=== PATIENT | female | born 1985 | race Caucasian/White ===

== ENCOUNTER 2017-02-21 18:41 | Emergency (ER) | payer OTHER ==
[~2017-02-21] VITALS: Ht 172.7 cm; Wt 63.5 kg
--- NOTE | 2017-02-21 18:45 | NUR ---
PATIENT PRESENTS TO ER C/O RIGHT ACHILLES LACERATION S/P CAT SCRATCH. LACERATION IS 3CM X 0.5CM. NOT BLEEDING AT THIS TIME. PATIENT IS A/OX 4. BREATHING EVEN AND UNLABORED. NO SOB. VITALS STABLE. SAFETY AND COMFORT MEASURES IN PLACE. AWAITING MD ORDERS.
[2017-02-21] MEDS ORDERED: LIDOCAINE /MPF 1% VIAL 5 ML VIAL ONE (18:53)
[2017-02-21] MEDS ORDERED: TDAP [DIPH/PERTUSSIS/TET] 0.5 ML VIAL IM ONE ×2 (18:58→19:00)
[2017-02-21] MEDS ORDERED: LIDOCAINE HCL/PF 1% 30 ML VIAL TP ONE (19:00)
--- NOTE | 2017-02-21 19:05 | NUR ---
KELVIN FERGUSON AT BEDSIDE FOR SUTURING.
--- NOTE | 2017-02-21 19:17 | NUR ---
REPORT GIVEN TO KYE MATHEWS FOR PARVIN.
[2017-02-21] MEDS ORDERED: AMOX/CLAVULANATE 875 MG TABLET ONE (19:58)
[2017-02-21] MEDS ORDERED: AMOX/CLAVULANATE 875 MG TABLET PO ONE (20:00)
--- NOTE | 2017-02-21 20:17 | NUR ---
WOUND CARE TO BE COMPLETED BY EMT. D/C PAPERWORK GIVEN AND EXPLAINED. WILL CONTINUE TO MONITOR
[2017-02-21 20:18] VITALS: BP 135/65
== END 2017-02-21 20:22 | disposition home or self-care (01) ==
LOC: ER 18:45
DX: S81.812A Laceration without foreign body, left lower leg, initial encounter (principal); W55.03XA Scratched by cat, initial encounter; Y93.89 Activity, other specified; Y92.89 Other specified places as the place of occurrence of the external cause; Y99.8 Other external cause status
CPT/HCPCS: 12031; 90471; 90715; 99284; A4606; A6402; J3490 ×2; Z7610